=== PATIENT | male | born 1950 | race Caucasian/White ===

== ENCOUNTER 2021-06-03 21:17 | Inpatient (IN) | payer MEDICARE ==
[2021-06-03 22:27] LABS: Anisocytosis Slight; HCT 47.1 % (39.0-53.0); HGB 15.1 gm/dL (13.0-17.5); Hypochromasia Slight; MCH 30.3 pg (25.0-35.0); MCV 94.7 fL (80.0-100.0); Mean Platelet Volume 8.2; Platelet Count 255 k/uL (150-450); RBC 4.98 m/uL (4.30-5.90)
[2021-06-03 22:31] LABS: African American GFR (CKD) >90 (>60 ml/min/1.73 sqM); Albumin 3.8 g/dL (3.5-5.0); Blood Urea Nitrogen 20 mg/dL (9-20); Carbon Dioxide 38 mmol/L (22-30); INR 1.6 (<1.2); Non-African American GFR(CKD) 79 (>60 ml/min/1.73 sqM); Partial Thromboplastin Time 25.4 sec (22.0-30.0); Prothrombin Time 16.3 sec (9.0-12.0); Total Bilirubin 1.9 mg/dL (0.2-1.3); Total Protein 6.5 g/dL (6.3-8.2)
--- NOTE | 2021-06-03 22:35 | ED ---
Weakness HPI - General Chief complaint: Weakness Stated complaint: Difficulty Breathing, Congestion, Weakness Time Seen by Provider: 06/03/21 21:58 Source: patient, family Limitations: no limitations - History of Present Illness Initial comments: Santos is a 71yo M who presents to the ER this evening with his daughter for evaluation of shortness of breath and generalized weakness. Daughter reports that the patient was bitten by what they assume was a brown recluse spider 6 or 7 weeks ago while in [place], he has been following with wound care and wound does seem to be improving. The patient's I have any pain or fevers. For the past couple of days the patient has progressively felt weaker and more short of breath daughter reports that it looks like he's been struggling to breathe even when just sitting in his wheelchair. Patient has a history of paroxysmal atrial fibrillation when he had sepsis secondary to an infection in his left leg which has subsequently been amputated. He otherwise does not have A. fib he does not follow with the seo consultant he does not take any anticoagulation. - Related Data Home Medications Medication Instructions Recorded Confirmed QUEtiapine [SEROquel] 800 mg PO HS@199906/03/21 06/03/21 Allergies Allergy/AdvReac Type Severity Reaction Status Date / Time No Known Allergies Allergy Verified 06/03/21 22:45 Review of Systems ROS Statement: Those systems with pertinent positive or pertinent negative responses have been documented in the HPI. ROS Other: All systems not noted in ROS Statement are negative. Past Medical History Past Medical History: COPD Additional Past Medical History / Comment(s): Family reports hx of Narcotic abuse and alchohol History of Any Multi-Drug Resistant Organisms: None Reported Past Surgical History: Orthopedic Surgery Additional Past Surgical History / Comment(s): Left aka, back, neck surgery. Past Psychological History: No Psychological Hx Reported Smoking Status: Current some day smoker Past Alcohol Use History: None Reported Past Drug Use History: None Reported General Exam - General Exam Comments Initial Comments: Physical Exam GENERAL: Patient is well-developed and well-nourished. Patient is nontoxic and well- hydrated and is in no distress. HENT: Normocephalic, Atraumatic. EYES: PERRL, EOMI PULMONARY: Unlabored respirations. No audible rales rhonchi or wheezing was noted. CARDIOVASCULAR: Iirregular, tachycardic ABDOMEN: Soft and nontender with normal bowel sounds. SKIN: Skin is clear with no lesions or rashes and otherwise unremarkable. : Deferred NEUROLOGIC: Patient is alert and oriented x3. Moving all extremities spontaneously MUSCULOSKELETAL: Left above knee amputation PSYCHIATRIC: Normal psychiatric evaluation. Limitations: no limitations Course Vital Signs 06/03/21 06/03/21 06/03/21 21:34 22:11 23:10 Temperature 98.3 F Pulse Rate 110 H 123 H 126 H Respiratory 26 H 20 18 Rate Blood Pressure 118/65 101/87 131/87 O2 Sat by Pulse 89 L 96 95 Oximetry EKG Findings - EKG Comments: EKG Findings:: EKG was obtained due to tachycardia, EKG obtained at 2145, rate is 142 rhythm is a narrow complex irregularly irregular tachycardia consistent with the nature of fibrillation with rapid ventricular response. QRS is narrow 108, QTC 394. No acute ST elevations or depressions are noted no evidence of acute ischemia or infarction. Medical Decision Making - Medical Decision Making Patient was seen and evaluated history is obtained from patient History and physical exam are concerning for A. fib with RVR patient is not anticoagulated does not follow cardiology Labs are obtained, patient has mildly elevated troponin Heparin was initiated for A. fib as well as elevated troponin of the patient is chest pain-free I suspect the troponin elevation is due to persistent t achycardia Patient care was discussed with Dr. Garcia who accepts the admission with consult to cardiology - Lab Data Result diagrams: 06/03/21 22:10 06/03/21 22:10 Lab Results 06/03/21 06/03/21 06/03/21 Range/Units 22:10 22:10 22:10 WBC 5.0 (3.8-10.6) k/uL RBC 4.98 (4.30-5.90) m/uL Hgb 15.1 (13.0-17.5) gm/dL Hct 47.1 (39.0-53.0) % MCV 94.7 (80.0-100.0) fL MCH 30.3 (25.0-35.0) pg MCHC 32.0 (31.0-37.0) g/dL RDW 16.0 H (11.5-15.5) % Plt Count 255 (150-450) k/uL MPV 8.2 Hypochromasia Slight Anisocytosis Slight PT 16.3 H (9.0-12.0) sec INR 1.6 H (<1.2) APTT 25.4 (22.0-30.0) sec Sodium 135 L (137-145) mmol/L Potassium 3.1 L (3.5-5.1) mmol/L Chloride 86 L (98-107) mmol/L Carbon Dioxide 38 H (22-30) mmol/L Anion Gap 11 mmol/L BUN 20 (9-20) mg/dL Creatinine 0.96 (0.66-1.25) mg/dL Est GFR (CKD-EPI)AfAm >90 (>60 ml/min/1.73 sqM) Est GFR (CKD-EPI)NonAf 79 (>60 ml/min/1.73 sqM) Glucose 154 H (74-99) mg/dL Calcium 9.1 (8.4-10.2) mg/dL Total Bilirubin 1.9 H (0.2-1.3) mg/dL AST 275 H (17-59) U/L ALT 842 H (4-49) U/L Alkaline Phosphatase 79 (38-126) U/L Troponin I (0.000-0.034) ng/mL Total Protein 6.5 (6.3-8.2) g/dL Albumin 3.8 (3.5-5.0) g/dL 06/03/21 Range/Units 22:10 WBC (3.8-10.6) k/uL RBC (4.30-5.90) m/uL Hgb (13.0-17.5) gm/dL Hct (39.0-53.0) % MCV (80.0-100.0) fL MCH (25.0-35.0) pg MCHC (31.0-37.0) g/dL RDW (11.5-15.5) % Plt Count (150-450) k/uL MPV Hypochromasia Anisocytosis PT (9.0-12.0) sec INR (<1.2) APTT (22.0-30.0) sec Sodium (137-145) mmol/L Potassium (3.5-5.1) mmol/L Chloride (98-107) mmol/L Carbon Dioxide (22-30) mmol/L Anion Gap mmol/L BUN (9-20) mg/dL Creatinine (0.66-1.25) mg/dL Est GFR (CKD-EPI)AfAm (>60 ml/min/1.73 sqM) Est GFR (CKD-EPI)NonAf (>60 ml/min/1.73 sqM) Glucose (74-99) mg/dL Calcium (8.4-10.2) mg/dL Total Bilirubin (0.2-1.3) mg/dL AST (17-59) U/L ALT (4-49) U/L Alkaline Phosphatase (38-126) U/L Troponin I 0.070 H* (0.000-0.034) ng/mL Total Protein (6.3-8.2) g/dL Albumin (3.5-5.0) g/dL Disposition Clinical Impression: Atrial fibrillation with RVR, Elevated troponin Disposition: ADMITTED IP TO THIS HOSP Condition: Stable Is patient prescribed a controlled substance at d/c from ED?: No Referrals: Nonstaff,Physician [Primary Care Provider] - 1-2 days
[2021-06-03] MEDS ORDERED: HEPARIN SODIUM 1,000 UN/ML (10ML VL) IV PRN (22:38)
[2021-06-03] MEDS ORDERED: HEPARIN SODIUM 1,000 UN/ML (10ML VL) IV ONE (22:38)
[2021-06-03 22:39] LABS: AST 275 U/L (17-59); Alkaline Phosphatase 79 U/L (38-126); Anion Gap 11 mmol/L; Calcium 9.1 mg/dL (8.4-10.2); Chloride 86 mmol/L (98-107); Glucose 154 mg/dL (74-99); Potassium 3.1 mmol/L (3.5-5.1); Sodium 135 mmol/L (137-145)
[2021-06-03] MEDS ORDERED: DILTIAZEM DRIP BOLUS FROM BAG 1 MG SOLN IV ONE (22:39)
[2021-06-03] MEDS ORDERED: HEPARIN SOD,PORK IN 0.45% NACL 25,000 UNIT in 0.45% NACL 1 250ML.BAG IV SCH (22:45)
--- NOTE | 2021-06-03 22:48 | XR ---
EXAMINATION TYPE: XR chest 2V DATE OF EXAM: 06/03/2021 COMPARISON: NONE HISTORY: Vertebra TECHNIQUE: 2 views FINDINGS: There are some coarse interstitial density in the lungs. Heart is enlarged. There are chest leads. There is slight blunting of the costophrenic angles. There are no hilar masses. There is cerv ical spine fusion surgery. There is osteopenia. IMPRESSION: Small pleural effusions. Pulmonary fibrotic changes. No obvious heart failure.
[2021-06-03 22:55] LABS: ALT 842 U/L (4-49)
[2021-06-03] MEDS: DILTIAZEM 125 MG in SODIUM CHLORIDE 0.9% 100 ML IV SCH (23:08)
[2021-06-03] MEDS ORDERED: ASPIRIN 81 MG PO STA (23:13)
[2021-06-03 23:36] LABS: Band Neutrophils % 28 %; Lymphocytes # (M) 0.25 k/uL (1.0-4.8); Neutrophils % (M) 59 %; Nucleated Red Blood Cells 0 /100 WBC (0-0); Polychromasia Present; Total Cells Counted 200
[2021-06-04 04:34] LABS: Anisocytosis Slight; HCT 43.1 % (39.0-53.0); HGB 13.5 gm/dL (13.0-17.5); Hypochromasia Slight; MCH 29.9 pg (25.0-35.0); MCHC 31.3 g/dL (31.0-37.0); MCV 95.6 fL (80.0-100.0); Platelet Count 231 k/uL (150-450); RDW 16.1 % (11.5-15.5)
[2021-06-04 04:55] LABS: INR 1.6 (<1.2); Partial Thromboplastin Time 44.4 sec (22.0-30.0)
[2021-06-04 04:57] LABS: Band Neutrophils % 14 %; Neutrophils % (M) 62 %; Nucleated Red Blood Cells 0 /100 WBC (0-0); Polychromasia Present; Total Cells Counted 100
[2021-06-04] MEDS: DILTIAZEM 125 MG in SODIUM CHLORIDE 0.9% 100 ML IV SCH (08:49)
[2021-06-04] MEDS ORDERED: ASPIRIN 325 MG TAB PO SCH (09:00)
[2021-06-04] MEDS ORDERED: METOPROLOL TARTRATE 25 MG TAB PO SCH (09:30)
[2021-06-04] MEDS ORDERED: Potassium Replacement Protocol 1 EACH MISC MISCELLANE PRN (09:33)
[2021-06-04] MEDS ORDERED: POTASSIUM CHLORIDE ER 20 MEQ TAB.ER PO STA (09:33)
[2021-06-04] MEDS: APIXABAN 5 MG TAB PO SCH ×2 (12:27→23:21)
--- NOTE | 2021-06-04 12:31 | ECHOF ---
Referral Reason:new onset a fib, elevated troponin MEASUREMENTS -------- HEIGHT: 180.3 cm WEIGHT: 72.6 kg BP: IVSd: 1.1 cm (0.6 - 1.1) LVIDd: 5.4 cm (3.9 - 5.3) LVPWd: 0.9 cm (0.6 - 1.1) IVSs: 0.7 cm LVIDs: 5.0 cm LVPWs: 1.1 cm LAESV Index (A-L): 31.77 ml/m Ao Diam: 3.3 cm (2.0 - 3.7) AV Cusp: 1.9 cm (1.5 - 2.6) LA Diam: 3.0 cm (2.7 - 3.8) AR PHT: 468 ms RAP: 20.00 mmHg RVSP: 39.49 mmHg FINDINGS -------- Atrial fibrillation. This was a technically good study. The left ventricular size is normal. Left ventricular wall thickness is normal. There is severe g lobal hypokinesis of LV . Overall left ventricular systolic function is severely impaired with, an EF between 20 - 25 %. Left ventricular fillimg pressure cannot be estimated due to Atrial fibrillat ion. The right ventricle is normal in size. The left atrial size is normal. Normal LA size by volume 22+/-6 ml/m2. The right atrial size is normal. The aortic valve is trileaflet and appears structurally normal. There is mild aortic regurgitation. Normal appearing mitral valve. The mitral valve leaflets are mildly thickened. Mild mitral regur gitation is present. The tricuspid valve appears structurally normal. Mild tricuspid regurgitation present. There is m ild pulmonary hypertension. The right ventricular systolic pressure, as measured by Doppler, is 39. 49mmHg. There is no pulmonic regurgitation present. The aortic root size is normal. The inferior vena cava is dilated with no significant inspiratory collapse which is consistent estima jacqueline right atrial pressure of >20 mmHg. There is no pericardial effusion. CONCLUSIONS -------- 1. The left ventricular size is normal. 2. Left ventricular wall thickness is normal. 3. There is severe global hypokinesis of LV . 4. Overall left ventricular systolic function is severely impaired with, an EF between 20 - 25 %. 5. Left ventricular fillimg pressure cannot be estimated due to Atrial fibrillation. 6. There is mild aortic regurgitation. 7. The mitral valve leaflets are mildly thickened. 8. Mild mitral regurgitation is present. 9. Mild tricuspid regurgitation present. 10. There is mild pulmonary hypertension. 11. The right ventricular systolic pressure, as measured by Doppler, is 39.49mmHg. 12. The inferior vena cava is dilated with no significant inspiratory collapse which is consistent es timated right atrial pressure of >20 mmHg. 13. There is no pericardial effusion. MANAGER LAUNDRY: Savanah Bermeo RDCS
[2021-06-04 12:35] LABS: ALT 658 U/L (4-49); AST 176 U/L (17-59); African American GFR (CKD) >90 (>60 ml/min/1.73 sqM); Albumin 3.4 g/dL (3.5-5.0); Alkaline Phosphatase 72 U/L (38-126); Anion Gap 9 mmol/L; Blood Urea Nitrogen 21 mg/dL (9-20); Calcium 8.7 mg/dL (8.4-10.2); Carbon Dioxide 38 mmol/L (22-30); Chloride 88 mmol/L (98-107); Glucose 127 mg/dL (74-99); Non-African American GFR(CKD) 82 (>60 ml/min/1.73 sqM); Potassium 3.2 mmol/L (3.5-5.1); Sodium 135 mmol/L (137-145); Total Bilirubin 1.7 mg/dL (0.2-1.3)
--- NOTE | 2021-06-04 13:11 | US ---
EXAMINATION TYPE: US liver DATE OF EXAM: 06/04/2021 COMPARISON: NONE CLINICAL HISTORY: elevated LFTs. Elevated LFTs. EXAM MEASUREMENTS: Liver Length: 14.2 cm Gallbladder Wall: 0.19 cm CBD: 0.21 cm Right Kidney: 10.0 x 4.6 x 5.0 cm Limited due to gas. Pancreas: Limited visibility of tail. Duct seen measures 0.3 cm. Liver: Appears coarse in echotexture with slightly increased echogenicity. Hyperechoic area seen near janett hepatis with slightly irregular borders measuring 3.4 x 2.2 x 1.6 cm. Gallbladder: Folds seen, appears anechoic. Evidence for sonographic Brown's sign: No CBD: Portions seen appear wnl. Right Kidney: No hydronephrosis or masses seen Slightly increased echogenicity of the liver which may suggest mild hepatic steatosis. Hyperechoic le [place] is seen in the central portion of the left hepatic lobe which could represent a hepatic hemangio ma. This can be confirmed by triphasic CT scan or MRI of the liver. No evidence of cholelithiasis or acute cholecystitis. The CBD is not dilated, yet not completely visualized. Suboptimal visualization of the pancreas with slightly prominent pancreatic duct measuring 3 mm. Grossly unremarkable right ki dney. IMPRESSION: Slightly hyperechoic hepatic parenchyma, nonspecific, please correlate with liver function tests and hepatic viral serology. Suspected central hepatic hemangioma. This can be confirmed by triphasic CT s can/MRI of the liver. Other incidental findings as described above.
[2021-06-04] MEDS ORDERED: HYDROcodone/APAP 5-325MG 1 EACH TAB PO PRN (13:18)
--- NOTE | 2021-06-04 14:11 | P.HPIM ---
History of Present Illness H&P Date: 06/04/21 Chief Complaint: SOB Patient is a 71-year-old male with a known history of COPD, left AKA, back and neck surgery and currently everyday smoker presents to ER with complaints of shortness of breath and generalized weakness. Patient has been having worsening symptoms for the past 2 days and felt very weak. According to his daughter patient was struggling to breathe when sitting in his wheelchair chair. Patient did have history of paroxysmal atrial fibrillation when he had sepsis secondary to left leg infection and has subsequently been amputated. No further episodes of atrial fibrillation and does not follow with any mold puller at this time. Patient is not on any anticoagulation. Patient was recently treated for cellulitis due to recluse spider bite about 6 to 7 weeks while in [place]. For which he has been following wound care and wound is healing well. On admission blood pressure was 118/65, heart rate 140s and pulse ox 89% on room air. EKG showed atrial fibrillation with rapid regular response Chest x-ray showed small pleural effusions. Pulmonary fibrotic changes. No obvious heart failure. Laboratory data showed WBC 5.0 hemoglobin 14.1 and platelets 255 INR 1.6 Sodium 135 potassium 3.1 Chloride 86, bicarb 38 Blood sugar 154, bilirubin level is 1.9 total, AST 275 ALT 842 and alk phos 79. Troponin 0.070, 0.069 and 0.057 and proBNP is 7530 albumin 3.8 2D echocardiogram for leg infection 20 to 25% with global hypokinesis. Mild pulmonary hypertension. Review of Systems Constitutional: Patient denies any fever or chills . Generalized weakness. Abdomen: Patient denied nausea vomiting and diarrhea and abdominal pain. Cardiovascular: Patient denies any chest pain. Patient does have shortness of breath. No leg swelling. no palpitations. Respiratory: patient denied any cough is from production. No shortness of breath Neurologic: Patient denied any numbness or tingling headache. Musculoskeletal: Patient denies any complaints of joint swelling or deformity. Skin: Negative Psychiatric: Negative Endocrine: No heat or cold intolerance. No recent weight gain. Genitourinary: No dysuria or hematuria. All other 14 point ROS negative except the above Past Medical History Past Medical History: COPD Additional Past Medical History / Comment(s): Family reports hx of Narcotic abuse and alchohol History of Any Multi-Drug Resistant Organisms: None Reported Past Surgical History: Orthopedic Surgery Additional Past Surgical History / Comment(s): Left aka, back, neck surgery. Past Psychological History: No Psychological Hx Reported Smoking Status: Current some day smoker Past Alcohol Use History: None Reported Past Drug Use History: None Reported Medications and Allergies Home Medications Medication Instructions Recorded Confirmed Type QUEtiapine [SEROquel] 800 mg PO HS@199906/03/21 06/03/21 History Apixaban [Eliquis] 5 mg PO BID 30 Days #60 tab 06/04/21 Rx Allergies Allergy/AdvReac Type Severity Reaction Status Date / Time No Known Allergies Allergy Verified 06/03/21 22:45 Physical Exam Vitals: Vital Signs Temp Pulse Pulse Resp BP BP Pulse Ox 06/04/21 08:48 97.5 F L 139 H 16 113/80 90 L 06/04/21 07:30 129 H 18 109/73 92 L 06/04/21 06:00 130 H 105/75 06/04/21 04:00 133 H 18 108/87 06/04/21 02:00 117 H 18 108/95 95 06/04/21 00:26 122 H 18 128/96 95 06/03/21 23:52 140 H 18 105/91 95 06/03/21 23:10 126 H 18 131/87 95 06/03/21 22:11 123 H 20 101/87 96 06/03/21 21:34 98.3 F 110 H 26 H 118/65 89 L Intake and Output 06/03/21 06/04/21 06/04/21 22:59 06:59 14:59 Intake Total 65.212 84 Balance 65.212 84 Intake: Intake, IV Titration 65.212 84 Amount Diltiazem 125 mg In 8.458 84 Sodium Chloride 0.9% 100 ml @ Per Protocol IV .Q0M SHANNON Rx#:[id number] Heparin Sod,Pork in 0.45% 56.754 NaCl 25,000 unit In 0.45 % NaCl 1 250ml.bag @ 12 UNITS/KG/HR 8.709 mls/hr IV .Q24H SHANNON Rx#: [id number] Other: Weight 72.575 kg PHYSICAL EXAMINATION: Patient is lying in the bed comfortably, no acute distress, awake alert and oriented.. HEENT: Normocephalic. Neck is supple. Pupils reactive. Nostrils clear. Oral cavity is moist. Neck reveals no JVD, carotid bruits, or thyromegaly. CHEST EXAMINATION: Trachea is central. Symmetrical expansion. Bibasilar d iminished sounds. Lung valles clear to auscultation and percussion. CARDIAC: Normal S1, S2 with no gallops. No murmurs ABDOMEN: Soft. Bowel sounds normal. No organomegaly. No abdominal bruits. Extremities: reveal no edema. No clubbing or cyanosis. Left elbow knee amputation. Neurologically awake, alert, oriented x3 with well-coordinated movements. No focal deficits noted Skin: No rash or skin lesions. Psychiatric: Coperative. Nonsuicidal Musculoskeletal: No joint swelling or deformity. Normal range of motion. Results CBC & Chem 7: 06/04/21 04:09 06/04/21 11:14 Labs: Abnormal Lab Results - Last 24 Hours (Table) 06/03/21 06/03/21 06/03/21 Range/Units 22:10 22:10 22:10 RDW 16.0 H (11.5-15.5) % Lymphocytes # (Manual) 0.25 L (1.0-4.8) k/uL PT 16.3 H (9.0-12.0) sec INR 1.6 H (<1.2) APTT (22.0-30.0) sec Sodium 135 L (137-145) mmol/L Potassium 3.1 L (3.5-5.1) mmol/L Chloride 86 L (98-107) mmol/L Carbon Dioxide 38 H (22-30) mmol/L Glucose 154 H (74-99) mg/dL Total Bilirubin 1.9 H (0.2-1.3) mg/dL AST 275 H (17-59) U/L ALT 842 H (4-49) U/L Troponin I (0.000-0.034) ng/mL 06/03/21 06/03/21 06/04/21 Range/Units 22:10 23:19 04:09 RDW (11.5-15.5) % Lymphocytes # (Manual) (1.0-4.8) k/uL PT 16.0 H (9.0-12.0) sec INR 1.6 H (<1.2) APTT 44.4 H (22.0-30.0) sec Sodium (137-145) mmol/L Potassium (3.5-5.1) mmol/L Chloride (98-107) mmol/L Carbon Dioxide (22-30) mmol/L Glucose (74-99) mg/dL Total Bilirubin (0.2-1.3) mg/dL AST (17-59) U/L ALT (4-49) U/L Troponin I 0.070 H* 0.069 H* (0.000-0.034) ng/mL 06/04/21 06/04/21 Range/Units 04:09 04:09 RDW 16.1 H (11.5-15.5) % Lymphocytes # (Manual) 0.50 L (1.0-4.8) k/uL PT (9.0-12.0) sec INR (<1.2) APTT (22.0-30.0) sec Sodium (137-145) mmol/L Potassium (3.5-5.1) mmol/L Chloride (98-107) mmol/L Carbon Dioxide (22-30) mmol/L Glucose (74-99) mg/dL Total Bilirubin (0.2-1.3) mg/dL AST (17-59) U/L ALT (4-49) U/L Troponin I 0.057 H* (0.000-0.034) ng/mL Thrombosis Risk Factor Assmnt - DVT/VTE Prophylaxis DVT/VTE Prophylaxis: Pharmacologic Prophylaxis ordered Assessment and Plan Assessment: Atrial fibrillation with rapid ventricular rate. 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 Elevated liver enzymes possible hepatic congestion Coagulopathy with elevated INR level 1.6 Hypokalemia and hypercapnia COPD not on home oxygen Currently everyday smoker History of left above-knee amputation Plan: Patient was started on Cardizem drip and heparin drip as per protocol. Anticoagulation changed to Eliquis 5 mg twice daily. Heart rate is better controlled now. Will be started on Lasix as blood pressure tolerates. Follow- up TSH level. Patient will be continued on aspirin and follow-up lipid profile level. Elevated liver enzymes likely due to hepatic congestion/rule out hepatitis. Ultrasound of the liver was ordered and follow-up acute hepatitis panel. Replace electrolytes and cardiology is on board. Continue to follow closely. Time with Patient: Greater than 30
--- NOTE | 2021-06-04 14:52 | P.CRDCN ---
History of Present Illness History of present illness: This is a 71 year old male with a past medical history of left above the knee amputation 2019 at [place] (patient is unsure why this happened. Per the ER note family said he was sepsis and has an infection of his left leg), chronic smoker under 1/2 PPD for 50+ years. He states he does not follow with a management tech or vascular. We are asked to see the patient in consultation for new onset atrial fibrillation. Patient presents with worsening symptoms of palpitations, shortness of breath, nausea, vomiting, generalized fatigue and headache. He states he has been having these symptoms for over a month, the past few days family has noticed patient appears more weak and worsening shortness of breath and recommended patient be evaluated in the ER. He denies history of CAD, MA, Stroke, diabetes, hypertension, dyslipidemia. He states he rarely drinks alcohol. He currently smokes less than 1/2 PPD. No illicit drug use. DIAGNOSTICS EKG reveals atrial fibrillation with rapid ventricular response, heart rate 142, LVH Telemetry tracings indicate atrial fibrillation with rapid ventricular response HR 115-140s Echocardiogram revealed an EF of 2025 percent, mild aortic regurgitation, mild mitral regurgitation, mild tricuspid regurgitation, mild pulmonary hypertension with RVSP of 39 mmHg Chest xray small pleural effusions, heart is enlarged, no obvious have failure. Laboratory reviewed, sodium 135, potassium 3.1, BUN 20, serum creatinine 0.9, total bilirubin 1.9, AST 275, ALT 842, troponin 0.07, 0.0 6. 0.05. Current home medications include Seroquel REVIEW OF SYSTEMS At the time of my exam: CONSTITUTIONAL: Denies fever or chills. CARDIOVASCULAR: Denies chest pain, +shortness of breath, orthopnea, PND or palpitations. RESPIRATORY: Denies cough. GASTROINTESTINAL: Denies abdominal pain, diarrhea, constipation, nausea or vomiting. MUSCULOSKELETAL: Denies myalgias. NEUROLOGIC: Denies numbness, tingling, headacbe or weakness. ENDOCRINE: Denies fatigue, weight change, polydipsia or polyurina. GENITOURINARY: Denies burning, hematuria or urgency with micturation. HEMATOLOGIC: Denies history of anemia or bleeding. PHYSICAL EXAMINATION Blood pressure 113/80, heart rate 139, afebrile, oxygen saturation is 90% on 3 L nasal cannula CONSTITUTIONAL: No apparent distress. HEENT: Head is normocephalic. Pupils are equal, round. Sclerae anicteric. Mucous membranes of the mouth are moist. No JVD. No carotid bruit. CHEST EXAMINATION: Lungs are wheezing bilaterally to auscultation. No chest wall tenderness is noted on palpation or with deep breathing. HEART EXAMINATION: Irregular rate and rhythm. S1, S2 heard. No murmurs, gallops or rub. ABDOMEN: Soft, nontender. Positive bowel sounds. EXTREMITIES: 2+ peripheral pulses, no lower extremity edema and no calf tenderness. Left AKA noted. SKIN: Right upper thigh wound with purulent drainage noted NEUROLOGIC EXAMINATION: Patient is awake, alert and oriented x3. ASSESSMENT Paroxysmal atrial fibrillation with RVR [id number] 2 Elevated troponin, trend not consistent with acute coronary syndrome, possibly related to A fib with RVR Cardiomyopathy, ischemic vs non-ischemic History of left knee above the knee amputation in 2019 Chronic nicotine dependence Hypotenion Hypokalemia Elevated LFTs PLAN 2D echocardiogram and doppler study ordered Check BNP Transition to Eliquis 5mg BID Metoprolol tartrate 25mg TID Wean off Cardizem drip Replace potassium Check TSH and Lipid panel NPO after midnight in the event of intervention Nurse practitioner note has been reviewed by physician. Signing provider agrees with the documented findings, assessment, and plan of care. Past Medical History Past Medical History: COPD Additional Past Medical History / Comment(s): Family reports hx of Narcotic abuse and alchohol History of Any Multi-Drug Resistant Organisms: None Reported Past Surgical History: Orthopedic Surgery Additional Past Surgical History / Comment(s): Left aka, back, neck surgery. Past Psychological History: No Psychological Hx Reported Smoking Status: Current some day smoker Past Alcohol Use History: None Reported Past Drug Use History: None Reported Medications and Allergies Home Medications Medication Instructions Recorded Confirmed Type QUEtiapine [SEROquel] 800 mg PO HS@199906/03/21 06/03/21 History Apixaban [Eliquis] 5 mg PO BID 30 Days #60 tab 06/04/21 Rx Allergies Allergy/AdvReac Type Severity Reaction Status Date / Time No Known Allergies Allergy Verified 06/03/21 22:45 Physical Exam Vitals: Vital Signs Temp Pulse Pulse Resp BP BP Pulse Ox 06/04/21 08:48 97.5 F L 139 H 16 113/80 90 L 06/04/21 07:30 129 H 18 109/73 92 L 06/04/21 06:00 130 H 105/75 06/04/21 04:00 133 H 18 108/87 06/04/21 02:00 117 H 18 108/95 95 06/04/21 00:26 122 H 18 128/96 95 06/03/21 23:52 140 H 18 105/91 95 06/03/21 23:10 126 H 18 131/87 95 06/03/21 22:11 123 H 20 101/87 96 06/03/21 21:34 98.3 F 110 H 26 H 118/65 89 L Intake and Output 06/03/21 06/04/21 06/04/21 22:59 06:59 14:59 Intake Total 65.212 84 Balance 65.212 84 Intake: Intake, IV Titration 65.212 84 Amount Diltiazem 125 mg In 8.458 84 Sodium Chloride 0.9% 100 ml @ Per Protocol IV .Q0M [facility] Rx#:[id number] Heparin Sod,Pork in 0.45% 56.754 NaCl 25,000 unit In 0.45 % NaCl 1 250ml.bag @ 12 UNITS/KG/HR 8.709 mls/hr IV .Q24H [facility] Rx#: [id number] Other: Weight 72.575 kg Results 06/04/21 04:09 06/04/21 11:14 Cardiac Enzymes 06/03/21 06/03/21 06/03/21 Range/Units 22:10 22:10 23:19 AST 275 H (17-59) U/L Troponin I 0.070 H* 0.069 H* (0.000-0.034) ng/mL 06/04/21 Range/Units 04:09 AST (17-59) U/L Troponin I 0.057 H* (0.000-0.034) ng/mL Coagulation 06/03/21 06/04/21 Range/Units 22:10 04:09 PT 16.3 H 16.0 H (9.0-12.0) sec APTT 25.4 44.4 H (22.0-30.0) sec CBC 06/03/21 06/04/21 Range/Units 22:10 04:09 WBC 5.0 5.0 (3.8-10.6) k/uL RBC 4.98 4.50 (4.30-5.90) m/uL Hgb 15.1 13.5 (13.0-17.5) gm/dL Hct 47.1 43.1 (39.0-53.0) % Plt Count 255 231 (150-450) k/uL Comprehensive Metabolic Panel 06/03/21 Range/Units 22:10 Sodium 135 L (137-145) mmol/L Potassium 3.1 L (3.5-5.1) mmol/L Chloride 86 L (98-107) mmol/L Carbon Dioxide 38 H (22-30) mmol/L BUN 20 (9-20) mg/dL Creatinine 0.96 (0.66-1.25) mg/dL Glucose 154 H (74-99) mg/dL Calcium 9.1 (8.4-10.2) mg/dL AST 275 H (17-59) U/L ALT 842 H (4-49) U/L Alkaline Phosphatase 79 (38-126) U/L Total Protein 6.5 (6.3-8.2) g/dL Albumin 3.8 (3.5-5.0) g/dL Current Medications Generic Name Dose Route Start Last Admin Trade Name Freq PRN Reason Stop Dose Admin Aspirin 325 mg 06/04/21 09:00 06/04/21 08:49 Aspirin 325 Mg Tab PO 325 mg DAILY [facility] Administration Heparin Sodium (Porcine) 0 unit 06/03/21 22:38 Heparin Sodium 1,000 Un/Ml (10ml Vl) IV PER PROTOCOL PRN Low PTT Protocol Heparin Sodium/Sodium Chloride 250 mls @ 8.709 mls/hr 06/03/21 22:45 06/04/21 05:36 25,000 unit/ Sodium Chloride IV 12 units/kg/hr .Q24H [facility] 8.709 mls/hr Titration Protocol 12 UNITS/KG/HR Diltiazem HCl 125 mg/ Sodium 125 mls @ 0 mls/hr 06/03/21 22:45 06/04/21 08:49 Chloride IV 10 mls/hr .Q0M [facility] 10 mls/hr Administration Protocol Per Protocol Intake and Output 06/03/21 06/04/21 06/04/21 22:59 06:59 14:59 Intake Total 65.212 84 Balance 65.212 84 Intake: Intake, IV Titration 65.212 84 Amount Diltiazem 125 mg In 8.458 84 Sodium Chloride 0.9% 100 ml @ Per Protocol IV .Q0M [facility] Rx#:[id number] Heparin Sod,Pork in 0.45% 56.754 NaCl 25,000 unit In 0.45 % NaCl 1 250ml.bag @ 12 UNITS/KG/HR 8.709 mls/hr IV .Q24H [facility] Rx#: [id number] Other: Weight 72.575 kg 06/04/21 04:09 06/03/21 22:10
[2021-06-04] MEDS ORDERED: POTASSIUM CHLORIDE ER 20 MEQ TAB.ER PO ONE (15:00)
[2021-06-04] MEDS ORDERED: POTASSIUM CHLORIDE ER 20 MEQ TAB.ER PO SCH (15:00)
[2021-06-04] MEDS: METOPROLOL TARTRATE 25 MG TAB PO SCH ×2 (16:48→23:21)
[2021-06-04 18:51] LABS: Chol/HDL Ratio 4.09 Ratio; LDL Cholesterol,Calculated 98.4 mg/dL (0.0-131.0)
[2021-06-04 19:22] LABS: Glucose,Whole Blood 187 mg/dL (75-99)
[2021-06-04] MEDS ORDERED: MIDAZOLAM 2 MG/2 ML VIAL ONE (19:27)
[2021-06-04] MEDS ORDERED: propofoL 100 ML IV ONE (19:28)
[2021-06-04] MEDS ORDERED: SODIUM BICARB 8.4% 50 ML SYR (1 MEQ/ML) ONE (19:30)
[2021-06-04] MEDS ORDERED: SODIUM CHLORIDE 0.9% 250 ML BAG ONE (19:30)
[2021-06-04] MEDS ORDERED: NOREPINEPHRINE 1 MG/ML 4 ML VIAL IV ONE (19:30)
[2021-06-04] MEDS ORDERED: MIDAZOLAM 1 MG/ML 5 ML VIAL IV STA (19:46)
[2021-06-04 20:09] LABS: Glucose,Whole Blood 168 mg/dL (75-99)
[2021-06-04 20:51] LABS: ABG HCO3 24 mmol/L (21-25); ABG Oxygen Saturation 98.5 % (94-97); ABG PCO2 41 mmHg (35-45); ABG PH 7.38 (7.35-7.45); ABG PO2 150 mmHg (83-108); ABG TCO2 25 mmol/L (19-24); Allen Test Performed? Yes
[2021-06-04] MEDS: NOREPINEPHRINE 4 MG in SODIUM CHLORIDE 0.9% 250 ML IV SCH (20:54)
[2021-06-04] MEDS ORDERED: SODIUM CHLORIDE 0.9% 1,000 ML IV ONE (21:12)
--- NOTE | 2021-06-04 21:36 | XR ---
EXAMINATION TYPE: XR chest 1V portable DATE OF EXAM: 06/04/2021 9:05 PM COMPARISON: Chest radiographs from 06/03/2021 TECHNIQUE: XR chest 1V portable Frontal view of the chest. CLINICAL INDICATION:Male, 71 years old with history of Tube placement; FINDINGS: Lungs/Pleura: No significant change in airspace opacities seen in prior 06/03/2020. Fibrotic changes a re again seen unchanged. Pulmonary vascularity: Unremarkable. Heart/mediastinum: Cardiomediastinal silhouette is unremarkable. Musculoskeletal: No acute osseous pathology. There is fixation hardware in the lower cervical spine. Other findings: None Lines/Tubes: Endotracheal tube with distal tip 4.1 cm above the lemuel IMPRESSION: Endotracheal tube in appropriate position in an otherwise unchanged exam from 06/03/2021.
[2021-06-04] MEDS: SODIUM CHLORIDE 0.9% 50 ML with VASOPRESSIN 20 UNIT IVPB SCH ×2 (21:51)
[2021-06-05 00:06] LABS: HCT 52.4 % (39.0-53.0); HGB 16.4 gm/dL (13.0-17.5); Hypochromasia Moderate; MCH 30.7 pg (25.0-35.0); MCHC 31.3 g/dL (31.0-37.0); Macrocytosis Slight; Platelet Count 205 k/uL (150-450); RBC 5.35 m/uL (4.30-5.90)
[2021-06-05 00:26] LABS: Albumin 3.9 g/dL (3.5-5.0); Calcium 8.6 mg/dL (8.4-10.2); Potassium 4.7 mmol/L (3.5-5.1); Total Bilirubin 3.6 mg/dL (0.2-1.3); Total Protein 6.3 g/dL (6.3-8.2)
[2021-06-05] MEDS: NOREPINEPHRINE 4 MG in SODIUM CHLORIDE 0.9% 250 ML IV SCH ×2 (00:32→03:46)
[2021-06-05] MEDS: SODIUM CHLORIDE 0.9% 50 ML with VASOPRESSIN 20 UNIT IVPB SCH ×2 (00:42)
[2021-06-05 00:49] LABS: Band Neutrophils % 35 %; Eosinophils # (M) 0.23 k/uL (0-0.7); Neutrophils % (M) 50 %; Nucleated Red Blood Cells 2 /100 WBC (0-0); Total Cells Counted 200
[2021-06-05 00:50] LABS: Anisocytosis (M) Present; Lymphocytes # (M) 0.91 k/uL (1.0-4.8); Monocytes # (M) 0.68 k/uL (0-1.0); WBC 11.4 k/uL (3.8-10.6)
[2021-06-05 00:51] LABS: Polychromasia Present
[2021-06-05 00:53] LABS: Large Platelets Present
[2021-06-05] MEDS ORDERED: ATROPINE OPHTH SOLN 1% 5ML BTL SUBLINGUAL PRN (03:16)
[2021-06-05] MEDS ORDERED: LORazepam 2 MG/ML INJ IV PRN (03:30)
[2021-06-05] MEDS ORDERED: SCOPOLAMINE 1 MG/72 HR PATCH TRANSDERM SCH (04:00)
[2021-06-05] MEDS ORDERED: MORPHINE SULFATE (100 MG/2 ML) 100 MG in SODIUM CHLORIDE 0.9% 100 ML IV SCH (04:00)
[2021-06-05 04:04] VITALS: TEMP 97.7
[2021-06-05 04:06] LABS: Estimated Average Glucose UNC
[2021-06-05] MEDS: MORPHINE SULFATE 4 MG/ML SYRINGE IV PRN ×5 (04:39→07:42)
--- NOTE | 2021-06-05 04:43 | P.EN ---
A- team: Indication: Respiratory failure Arrived on Scene to find: Patient hypoxic with SpO2 80%, agonal breathing Vital signs reviewed: BP 80/50, Pulse 65, RR 20 Patient seen and examined at bedside. Chart reviewed and case discussed with RN. General: [non toxic], in respiratory distress, [appears at stated age] Derm: [warm], [dry] Head: [atraumatic], [normocephalic], [symmetric] Eyes: [EOMI], [no lid lag], [anicteric sclera] Mouth: [no lip lesion] Cardiovascular: Irregularly irregular, [no murmur] Lungs: [CTA bilateral], [no rhonchi, no rales] , [no accessory muscle use] Abdominal: [soft], [ nontender to palpation], [no guarding] Ext: [no gross muscle atrophy], L BKA, [no edema], [no contractures] Neuro: Unable to assess, moving all extremities Assessment: Acute respiratory failure Plan: The patient was intubated by ASSOCIATE DIRECTOR OF NURSING on the scene C/w ventilator bundle Levophed ordered Transfer to MICU Notified: Primary team and Textile Finisher notified by the RN A Total of 45 minutes of critical care time was spent on the complex care of this patient.
[2021-06-05 06:05] VITALS: BP 84/50; PULSE 49; RESP 18
[2021-06-05] MEDS: METOPROLOL TARTRATE 25 MG TAB PO SCH (07:45)
[2021-06-05] MEDS: APIXABAN 5 MG TAB PO SCH (07:45)
[2021-06-05] MEDS ORDERED: ASPIRIN 81 MG PO SCH (09:00)
--- NOTE | 2021-06-05 13:22 | P.DS ---
Providers Date of admission: 06/03/21 23:13 Expected date of discharge: 06/05/21 Attending physician: Janell Garcia Consults: 06/03/21 23:13 Consult Physician Urgent Consulting Provider: [facility] Consult Reason/Comments: afib rvr, elevated trop Do you want consulting provider notified?: Yes Primary care physician: Physician Nonstaff Hospital Course: Final diagnosis Atrial fibrillation with rapid ventricular rate. 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 Elevated liver enzymes possible hepatic congestion Coagulopathy with elevated INR level 1.6 Hypokalemia and hypercapnia COPD not on home oxygen Currently everyday smoker History of left above-knee amputation Preliminary cause of Acute congestive heart failure with systolic dysfunction, new onset with atrial fibrillation RVR Discharge disposition Patient has on 06/05/2021. According to nursing documentation time of is 801. Family was at the bedside and patient had been briefly placed on comfort measures per their request. Hospital course This is a 71-year-old male who was recently admitted with increasing shortness of breath and generalized weakness and was being closely monitored. According to the nursing staff patient briefly experienced respiratory distress and a code was called and patient was continued in atrial fibrillation with RVR and was intubated and sent to the ICU for close monitoring. Family notified and some coming from [place] and the family requested comfort care measures and to change CODE STATUS to no code. Once family arrived patient was extubated and taken off pressor support and placed on morphine drip and at 0801. Please refer to previous dictations and code documentation for further HPI. The impression and plan of care has been dictated by Jia Walters, Nurse Practitioner as directed. Dr. Jose MD I have performed a history and examination and MDM of this patient, discussed the same with the dictator, and agree with the dictator's assessment and plan as written ,documented as a scribe. Based on total visit time, I have performed more than 50% of the visit. Patient Condition at Discharge: Poor Plan - Discharge Summary Discharge Rx Participant: No New Discharge Prescriptions: New Apixaban [Eliquis] 5 mg PO BID 30 Days #60 tab No Action QUEtiapine [SEROquel] 800 mg PO HS@1999 Discharge Medication List QUEtiapine [SEROquel] 800 mg PO HS@199906/03/21 [History] Apixaban [Eliquis] 5 mg PO BID 30 Days #60 tab 06/04/21 [Rx] Follow up Appointment(s)/Referral(s): Beena Lauren MD [STAFF PHYSICIAN] - 2 Weeks Nonstaff,Physician [Primary Care Provider] - 1-2 days Discharge Disposition: - Preliminary Cause of Preliminary Cause of : Acute congestive heart failure with systolic dysfunction, new onset with at
== END 2021-06-05 09:30 | disposition expired | DRG 291 ==
LOC: EC 21:17 → 3SCARD 23:13 → 2SICU 06-04 19:38
PROVIDERS: ADMIT Internal Medicine; ATTEND Internal Medicine
PROC: 5A1935Z Respiratory Ventilation, Less than 24 Consecutive Hours (ICD-10-PCS; principal; 2021-06-04)
PROC: 0BH17EZ Insertion of Endotracheal Airway into Trachea, Via Natural or Artificial Opening (ICD-10-PCS; principal; 2021-06-04)
PROC: 3E043XZ Introduction of Vasopressor into Central Vein, Percutaneous Approach (ICD-10-PCS; principal; 2021-06-04)
DX: I50.21 Acute systolic (congestive) heart failure (principal); J96.01 Acute respiratory failure with hypoxia; J96.02 Acute respiratory failure with hypercapnia; I42.8 Other cardiomyopathies; D68.9 Coagulation defect, unspecified; F17.210 Nicotine dependence, cigarettes, uncomplicated; E87.6 Hypokalemia; I25.5 Ischemic cardiomyopathy; F10.11 Alcohol abuse, in remission; F11.11 Opioid abuse, in remission; I27.20 Pulmonary hypertension, unspecified; I95.9 Hypotension, unspecified; I48.0 Paroxysmal atrial fibrillation; J44.9 Chronic obstructive pulmonary disease, unspecified; K76.1 Chronic passive congestion of liver; Z51.5 Encounter for palliative care; Z66 Do not resuscitate; Z79.01 Long term (current) use of anticoagulants; Z89.612 Acquired absence of left leg above knee; Z86.19 Personal history of other infectious and parasitic diseases; I46.9 Cardiac arrest, cause unspecified; R77.8 Other specified abnormalities of plasma proteins; I08.3 Combined rheumatic disorders of mitral, aortic and tricuspid valves; Z98.890 Other specified postprocedural states
CPT/HCPCS: 36415; 36600; 71045; 71046; 76705; 80053; 80061; 82140; 82805; 83036; 83880; 84443; 84484; 85025; 85610; 85730; 87070; 87205; 93005; 93306; 94002; 94003; 96365; 96366; 96375; 99285